=== PATIENT | female | born 1945 | race Caucasian/White ===

== ENCOUNTER → 2022-06-02 13:35 | Outpatient (CLI) | payer MEDICARE, SELFPAY ==
[2022-06-02 14:29] LABS: Appearance Urine UA CLEAR; Bilirubin Urine UA NEGATIVE (NEGATIVE); Color Urine UA YELLOW; Glucose Urine UA TRACE g/dL (Negative); Ketones Urine UA TRACE (NEGATIVE); Leukocyte Esterase Urine UA TRACE (NEGATIVE); Nitrite Urine UA NEGATIVE (Negative); Occult Blood Urine UA NEGATIVE (Negative); Protein Urine UA TRACE (Negative); Urobilinogen Urine UA 0.2 E.U./dL (0.2)
[2022-06-02 14:35] LABS: Bacteria Urine None Seen; Culture Indicated Urine Specimen Cultured; RBC Urine None Seen (0-5/HPF); Squamous Epithelial Cell Urine 0-1 /HPF (0-5/HPF); WBC Urine 1-5/HPF (0-5/HPF)
[2022-06-02 15:04] LABS: Add Manual Diff / Slide Review NO; Basophils Absolute Auto 100 /uL (0-100); Eosinophils Absolute Auto 500 /uL (0-450); Eosinophils Percent Auto 5.4 % (2-4); Hemoglobin 12.6 g/dL (12.0-16.0); Lymphocytes Absolute Auto 3100 /uL (1100-4500); Lymphocytes Percent Auto 31.1 % (25-40); Mean Corpuscular Hemoglobin 31.7 PG (26-34); Mean Corpuscular Volume 88.1 fL (80-100); Monocytes Absolute Auto 600 /uL (0-900); Neutrophils Absolute Auto 5700 /uL (1500-7000); Neutrophils Percent Auto 56.5 % (50-75); Platelet Count 325 X10^3/uL (150-400); Red Blood Cell Count 3.97 X10^6/uL (4.0-5.2); Red Cell Distribution Width 13.4 % (11.6-14.8); White Blood Cell Count 10.1 X10^3/uL (4.5-11.0)
[2022-06-02 15:14] LABS: Hemoglobin A1C% w Est Avg Glu 5.3 % (4.0-6.0)
[2022-06-02 15:38] LABS: BUN Creatinine Ratio 17.7 (6-22); Blood Urea Nitrogen 17 mg/dL (7-17); Calcium 8.8 mg/dL (8.4-10.2); Carbon Dioxide 21 mmol/L (22-32); Chloride 106 mmol/L (98-107); Estimated Glomerular Filt Rate > 60 mL/min (>60); Glucose 127 mg/dL (80-110); HEMOLYSIS < 15 (0-50); Potassium 4.4 mmol/L (3.4-5.1); Sodium 138 mmol/L (137-145)
== END ==
PROVIDERS: Referring Provider Orthopaedic Surgery; Visit Provider Orthopaedic Surgery
DX: Z01.818 Encounter for other preprocedural examination (principal); R73.9 Hyperglycemia, unspecified; Z01.812 Encounter for preprocedural laboratory examination; N39.0 Urinary tract infection, site not specified
CPT/HCPCS: 80048; 81001; 83036; 85025; 87086; 93005; 93010

== ENCOUNTER → 2022-08-11 08:53 | Outpatient (CLI) | payer MEDICARE, SELFPAY ==
[2022-08-11 09:53] LABS: COVID19 -Nasal RAPID Negative (Negative)
== END ==
PROVIDERS: Referring Provider Orthopaedic Surgery; Visit Provider Orthopaedic Surgery
DX: Z20.822 Contact with and (suspected) exposure to COVID-19 (principal)
CPT/HCPCS: 87635; C9803

== ENCOUNTER 2022-08-12 06:17 | Day surgery (SDC) | payer MEDICARE, SELFPAY ==
[2022-08-05 08:22] VITALS: BMI 37.8
[2022-08-12] VITALS (12 sets, daily range): BP systolic 116–177; BP diastolic 46–82; PULSE 58–76; RESP 12–18; TEMP 36.3–36.9; O2SAT 90–99; BMI 39.2; BMI 37.8
--- NOTE | 2022-08-12 06:00 | DI.RAD.S_ITS ---
PROCEDURE: XR PELVIS 1-2V INDICATIONS: INNER OP TECHNIQUE: Intra-operative view of the pelvis and hip acquired. COMPARISON: X-ray pelvis with left hip, 05/08/2022. FINDINGS: Bones: Intraoperative devices prior to placement of arthroplasty prostheses are in expected positions. No fractures or suspicious bony lesions. Soft tissues: Overlying surgical retractors are present, along with other intraoperative changes. IMPRESSION: Intraoperative device in expected alignment and appearance. Dictated by: Corbin Caraballo M.D. on 08/12/2022 at 9:23 Approved by: Corbin Caraballo M.D. on 08/12/2022 at 9:23
[2022-08-12] MEDS: ACETAMINOPHEN 325 MG TABLET 975 MG PO (07:02)
[2022-08-12] MEDS: VANCOMYCIN 1,000 MG/200 ML PIGGYBACK 200 MG IV (07:05)
[2022-08-12] MEDS: CELECOXIB 200 MG CAPSULE PO (07:05)
[2022-08-12] MEDS: LACTATED RINGERS 1,000 ML 84 ML IV (07:11)
--- NOTE | 2022-08-12 07:41 | P.OP_ITS ---
Operative Date/Time/Diagnoses Date of procedure: 08/12/22 Time of procedure: 07:50 Pre-op diagnosis: right hip OA Post-op diagnosis: same Procedure & Clinicians Procedure: Right total hip arthroplasty posterior approach Same procedure as scheduled: Yes Indications: The patient has had progressively worsening right hip pain with radiographic changes consistent with arthritis. Non-operative management has failed and the patient has requested total hip replacement. The risks, benefits and alternatives to surgery were discussed with the patient prior to proceeding. Risks discussed included, but were not limited to, failure to relieve pain, leg length discrepancy, dislocation, stiffness, infection, nerve damage, deep venous thrombosis, pulmonary embolism, stroke, coma, heart attack, permanent paralysis and , as well as the potential need for eventual revision of the prosthetic. Surgeon: Nadia Goldsmith Canal Superintendent: Stefani Laura Anesthesia Type: General and Spinal Operative Notes Findings: Severe right hip osteoarthritis, adequate stability and bone Closure Type: primary Specimen(s): none sent Prosthetic devices, grafts, tissues, transplants, or devices: G[employer]mith [employer] Nephew R3 50 cup, 32 +0 Oxinium head, size 7 standard offset anthology Estimated Blood Loss (mL): 250 Blood products transfused: none Procedure in detail: The patient was seen in the pre-operative area, where the patient identified the right hip as the operative site and this was marked with my initials. The patient received pre-operative antibiotics and was taken to the operating room and placed on the operative table in the left lateral decubitus position after satisfactory anesthesia. A multimedia journalist out was performed. The right leg was prepared from the ankle to the iliac crest with ChloroPrep in the usual fashion and draped through sterile drapes. The hip was approached through an approximately 20 cm incision centered over the greater trochanter and curving gently posteriorly as it went proximally. This was carried sharply to the fascia guillermo, which was divided and retracted with a self retaining retractor. The trochanteric bursa was excised with care being taken to avoid the sciatic nerve, which was identified and protected throughout the case. The short external rotators were incised and the capsulomuscular flap was raised and tagged for later repair. The hip was dislocated, and a femoral neck osteotomy performed approximately 15 mm above the lesser trochanter. Retractors were placed around the femur. The canal was opened with a box cutting osteotome, followed by a T handled reamer and a lateralizing reamer. The chili pepper broach was then used, followed by sequential broaching until there was good stability of the broach in the femur. Retractors were placed to expose the acetabulum. The labrum and central soft tissues were removed. Reaming was performed initially going up in 2 mm increments, then 1 mm increments until good bite was obtained with an odd sized reamer. The cup 1 mm larger than the last reamer was then inserted using the appropriate anteversion guides. A trial neutral liner was placed. The broach was placed in the canal. A trial head and neck were then placed and the hip relocated and checked for leg length and stability. An intraoperative film confirmed the component position and no evidence of fracture. The patient was stable in the position of sleep, of squatting, and could be put through a range of motion with 45 degrees internal rotation without dislocation. At 90 degrees flexion, internal rotation to 70? was possible before dislocation. This was felt to be satisfactory and the appropriate components were opened, and the trials were removed. The acetabular liner was impacted into position. The final stem was then impacted into the prepared femoral canal. A brief Betadine soak was performed while trialing with head options. The hip was meticulously irrigated with normal saline. Finally the femoral head was impacted onto the stem. The acetabulum was cleared of all material and the hip relocated one final time. The capsulomuscular flap was then repaired to the greater trochanter though an awl hole using the tag sutures. The short external rotators were repaired with a nonabsorbable suture. The fascia guillermo was closed with Vicryl. The subcutaneous layer was closed with barbed sutures and surgical glue. A paul dressing was applied and the patient was taken to recovery having tolerated the procedure well. Complications: none Post-operative Condition: stable Disposition: Acute Care Plan for aftercare: The patient will be maintained on a standard total hip replacement protocol with weight bearing as tolerated and posterior hip precautions. The patient will receive Aspirin and sequential compression devices for DVT prophylaxis. The patient will be discharged home when safe for the home environment.
--- NOTE | 2022-08-12 07:41 | PM.PREOP ---
Pre-operative Note COVID-19 COVID-19 status: Negative Interval Note History & Physical reviewed/Exam performed by Physician: Yes Changes to H&P: No
[2022-08-12] MEDS: CEFAZOLIN 2 GM/100 ML PREMIX 100 ML IV (08:10)
[2022-08-12] MEDS: TRANEXAMIC ACID 1,000 MG VIAL 2000 MG INJ (08:20)
--- NOTE | 2022-08-12 08:35 | SUR.OPER ---
Lateral on padded OR bed. Gel axillary roll. Arms secured on padded armboard with pillow supporting top arm. Padded hip positioner braces x4 - anterior and posterior chest and pelvis. Additional gel pad used anterior pelvis. Gel pad under bottom leg from knee to foot and secured with tape over sheet.
[2022-08-12] MEDS: BUPIVACAINE LIPOSOME 266 MG/20 ML VIAL INJ (08:40)
[2022-08-12] MEDS: BUPIVACAINE 0.5% W/ EPI (PF) 30 ML VIAL INJ (08:45)
--- NOTE | 2022-08-12 10:00 | DI.RAD.S_ITS ---
PROCEDURE: XR HIP W PEL IF DONE LT 2V INDICATIONS: POST OP LEFT HIP TECHNIQUE: 2 view(s) of the hip acquired. COMPARISON: [facility] IrvingYuval Salazar, CR, XR PELVIS WITH LATERAL HIP LEFT, 05/08/2022, 9:32. FINDINGS: Bones: Patient is status post total left hip arthroplasty, with hardware components in expected positions. The hip joint appears congruent. The visualized bony structures appear intact. Soft tissues: Overlying postoperative changes are noted. No suspicious soft tissue densities. IMPRESSION: Expected immediate postoperative appearance, status post total left hip arthroplasty. Dictated by: Alexis Kim M.D. on 08/12/2022 at 16:51 Approved by: Alexis Kim M.D. on 08/12/2022 at 16:51
[2022-08-12] MEDS: OXYCODONE/ACETAMINOPHEN 5/325 TABLET 1 TAB PO (10:56)
[2022-08-12] MEDS: LACTATED RINGERS 1,000 ML 125 ML IV (11:43)
--- NOTE | 2022-08-12 14:36 | PT.IIE ---
Current Diagnoses Unilateral primary osteoarthritis, left hip (08/12/22) Surgery Performed Operation Date: 08/12/22 07:45 Actual Procedures p Total Hip Arthroplasty posterior(Left) - Nadia Goldsmith MD Surgical History (Last Updated 08/05/22 @ 09:18 by Maddie Olivera, RN) History of ankle surgery History of lumpectomy of right breast (2014) Hx of tonsillectomy Medical History (Last Updated 08/05/22 @ 09:18 by Maddie Olivera RN) Acid reflux Breast cancer, right (2014) Herpes HLD (hyperlipidemia) VALERIE on CPAP Osteoarthritis Physical Therapy Inpatient Evaluation/Re-Eval M1 PT/OT-IP Prior Functional Status Start: 08/12/22 15:54 Freq: NEEDED Status: Active Protocol: Document 08/12/22 14:36 AB (Rec: 08/12/22 16:04 AB [id number]) Medical Review Prior Functional Status Medical History Reviewed Yes Communication able to make needs known Mobility and Gait pt stated that she is independent with all mobilities and ambulation without AD Social History Household Members significant other Living Arrangements House Number of Floors (Floors) One Floor Number of Stairs To Enter/Railing? 3 steps R rail ascending to enter Home Environment Standard Height Toilet,Walk in Shower Home Equipment Front Wheel Walker,Straight Cane,Raised Toilet Seat Without Armrests,Hand Held Shower,Grab Bars Near Toilet, Grab Bars In Shower M2 PT-IP Current Condition Start: 08/12/22 15:54 Freq: NEEDED Status: Active Protocol: Document 08/12/22 14:36 AB (Rec: 08/12/22 16:04 AB [email or web address]) Physical Therapy Current Condition Current Condition Evaluation Date 08/12/22 Treatment Diagnosis s/p L TATIANA posterior; difficulty in walking Onset Date 08/12/22 M3 PT-IP Subjective Start: 08/12/22 15:54 Freq: NEEDED Status: Active Protocol: Document 08/12/22 14:36 AB (Rec: 08/12/22 16:04 AB [email or web address]) Subjective Physical Therapy Visit Type Type Initial Evaluation Visit Start Time 14:36 Visit Stop Time 15:25 Total Visit Minutes 49 Number of GROUNDS/MAINTENANCE SPECIALIST Visits 0 Physical Therapy Visit Comments Patient Comments agreeable to do PT Therapy Pain Assessment Pain When Pain Assessed At Rest Pain Present Pain Present Pain Reported Location Left Hip Intensity 4 Scale Used Numeric (0 - 10) Pain Management Techniques Apply Cold,Distraction, Modification of Treatment,Re- positioning,Timing of Activity with Medications M4 PT-IP Mobility and Gait Start: 08/12/22 15:54 Freq: NEEDED Status: Active Protocol: Document 08/12/22 14:36 AB (Rec: 08/12/22 16:04 AB [email or web address]) PT-Bed Mobility Assessment Supine to Sit Supine to Sit Standby Assistance PT-Transfer Assessment Sit to and From Stand Sit to and from Stand Moderate Assistance,1 Person Assistance,Use of Upper Extremities Equipment Transfer Assistive Device Gait Belt,Front Wheeled Walker Orthotic/Prosthetic Devices or Brace: No Transfers Transfer Destination Chair Transfer Technique ambulated Transfer Ability Level of Assist Minimal Assistance,Moderate Assistance,1 Person Assistance ,Use of Upper Extremities Comments Mobility Comments educated pt regarding posterior hip precatuions. pt able to recall 2/3. completed supine to sit SBA and cues for safety. able to sit on EOB SBA. completed sit to stand mod A and cues for hip precautions. ambulated in room using FWW min to mod A and cues for L quads contraction. pt agreed to sit on chair. positioned on the chair. call light and table placed within reach. caregiver training set up for tomorrow at 9 am. pt to call her partner. Gait Assessment Gait Gait Assistance Required: Minimum Assistance,Moderate Assistance Distance (Feet) 35 Able to Maintain Weight Bearing Status Yes During Gait Assistive Devices Assistive Device Gait Belt,Front Wheeled Walker Orthotic/Prosthetic Devices or Brace: No Gait Deviations General Gait Pattern Antalgic,Decreased Stride Length,Decreased Feet Clearance,Step-to Gait Factors Limiting Gait Function Factors Limiting Gait Function Decreased Activity Tolerance, Decreased Strength,Difficulty Following Directions,Limited Range of Motion,Pain,Poor Balance,Poor Safety Awareness PT-Balance Assessment Sitting Balance and Reactions Static Sitting Balance Ability Good Dynamic Sitting Balance Ability Good Standing Balance and Reactions Static Standing Balance Ability Fair Dynamic Standing Balance Ability Fair Device Used FWW M5 PT-IP Objective Assessments Start: 08/12/22 15:54 Freq: NEEDED Status: Active Protocol: Document 08/12/22 14:36 AB (Rec: 08/12/22 16:04 AB [email or web address]) Orientation Orientation/Cognition Level of Alertness Alert Orientation Name,Place,Situation Language Function Ability No Deficits Noted Safety Awareness Decreased Safety Awareness Memory Description Short Term Impaired Gross Range of Motion Lower Extremity ROM Assessment Within Functional Limits Strength Lower Extremity Strength Assessment Left Impaired Hip 3+/5 Knee 3+/5 Sensation Assessment Sensation Gross Sensation WNL Muscle Tone Muscle Tone WNL Yes M6 PT-IP Treatment Start: 08/12/22 15:54 Freq: NEEDED Status: Active Protocol: Document 08/12/22 14:36 AB (Rec: 08/12/22 16:04 AB [email or web address]) Physical Therapy Treatment Education Education Provided Precautions,Weight Bearing Status,Post-Op Packet,Safety M7 PT-IP Assessment and Plan Start: 08/12/22 15:54 Freq: NEEDED Status: Active Protocol: Document 08/12/22 14:36 AB (Rec: 08/12/22 16:04 AB [email or web address]) PT Summary Assessment and Plan Potential Rehabilitation Potential Fair Status of Condition at Evaluation Evolving Summary Impairments Pain,ROM,Strength,Balance, Coordination,Sensation,Tone, Cognition,Bed Mobility, Transfers,Gait,Activity Tolerance Assessment Summary pt s/p L TATIANA posterior approach and just had surgery this morning. pt will likely progress during hospital stay. pt requiring min to mod A with mobility using FWW and plans to go home with her partner Mary to assist her. caregiver training set up for tomorrow at 9 am. will continue to assess progress. Goals Bed Mobility Goal Independent Transfer Goal Independent,Front Wheeled Walker Gait Goal Independent,Front Wheel Walker Gait Distance 150 Other Goals up/down 3 steps R rail +SPC SBA Days to Meet Goals 5 Frequency of Treatment Frequency Of Treatment Twice a Day Treatment Plan Physical Therapy Treatment Plan Bed Mobility Training,Transfer Training,Gait Training, Therapeutic Exercise,Balance Retraining,Post Op Education, Discharge Planning,Hot or Cold Pack,Neuromuscular Re-ed, Coordination Retraining,Manual Therapy Precautions Posterior Hip Precautions No Hip Flexion > 90 degrees,No Hip Internal Rotation,No Hip Adduction Weight Bearing Status Weight Bearing Status Weight Bear as Tolerated Allowed Weight Bearing Amount (enter % LLE WBAT or #) (%) Recommendations To Nursing Amount of Assist Needed 1 Person Assist Discharge Recommendations PT Discharge Recommendations Home with 16/02 Assist Available,Outpatient PT Transportation Needs at Discharge Private Vehicle,Wheelchair/ Cabulance
[2022-08-12] MEDS: OXYCODONE IR 5 MG TABLET PO ×2 (14:45→20:07)
[2022-08-12] MEDS: CEFAZOLIN 3 GM IN 0.9 % NACL 3 GM/100 ML PLAST..BAG IV (16:00)
[2022-08-12] MEDS: ACETAMINOPHEN 325 MG TABLET 650 MG PO (17:43)
[2022-08-12] MEDS: IBUPROFEN 400 MG TABLET PO (17:43)
[2022-08-12] MEDS: ASPIRIN EC 81 MG TABLET PO (20:06)
[2022-08-12] MEDS: DOCUSATE 100 MG CAPSULE PO (20:07)
[2022-08-12] MEDS: ATORVASTATIN 20 MG TABLET 10 MG PO (20:07)
[2022-08-12] MEDS: ACYCLOVIR 400 MG TABLET 800 MG PO (20:08)
[2022-08-12] MEDS: CITALOPRAM 10 MG TABLET 20 MG PO (20:09)
[2022-08-13] VITALS: BP 137/62; PULSE 72; RESP 18; TEMP 36.8; O2SAT 95
[2022-08-13] MEDS: CEFAZOLIN VIAL 3 GM in SODIUM CHLORIDE 0.9% 100 ML IV (00:34)
[2022-08-13] MEDS: ACETAMINOPHEN 325 MG TABLET 650 MG PO ×2 (00:34→06:06)
[2022-08-13] MEDS: IBUPROFEN 400 MG TABLET PO ×2 (00:34→06:07)
[2022-08-13] MEDS: OXYCODONE IR 10 MG TABLET PO (02:34)
[2022-08-13 04:00] VITALS: BP 124/65; PULSE 65; RESP 17; TEMP 36.3; O2SAT 94
[2022-08-13 04:57] LABS: Hematocrit 35.5 % (36-46); Hemoglobin 12.2 g/dL (12.0-16.0)
[2022-08-13] MEDS: DOCUSATE 100 MG CAPSULE PO (08:38)
[2022-08-13] MEDS: ACYCLOVIR 400 MG TABLET 800 MG PO (08:38)
[2022-08-13] MEDS: ASPIRIN EC 81 MG TABLET PO (08:38)
[2022-08-13] MEDS: OXYCODONE IR 5 MG TABLET PO (08:38)
--- NOTE | 2022-08-13 08:46 | PM.DS.1 ---
History of Present Illness History of Present Illness Date Patient Seen: 08/13/22 Time Patient Seen: 08:46 Chief complaint: Left hip pain s/p left TATIANA Narrative: Patient is complaining of mild left hip pain this morning. She denies any numbness or tingling. No nausea or vomiting. Overall she is feeling well and would like to be discharged home today. Discharge Providers Provider Discharge Date: 08/13/22 Primary care physician: Doctor Jelly MD Consults: 08/05/22 09:34 Consult to Anesthesiology Routine Comment: Consulting Provider: Anesthesiologist Reason for consultation: PAC courtesy re: abnormal pre-op ECG 08/12/22 06:00 Consult to Anesthesiology Routine Comment: Consulting Provider: Anesthesiologist Reason for consultation: Regional block for post operative pain control 08/12/22 11:33 Consult to Discharge Planning Routine Comment: Consult to Physical Therapy Evaluate & Treat Comment: Physician Instructions: post op TATIANA protocol Discharge provider: Stefani Laura PA-C Summary Hospital Course Discharge Diagnosis: Left hip osteoarthritis Hospital Course: Operative Date/Time/Diagnoses Date of procedure: 08/12/22 Time of procedure: 07:50 Procedure & Clinicians Procedure: Left total hip arthroplasty posterior approach Same procedure as scheduled: Yes Indications: The patient has had progressively worsening left hip pain with radiographic changes consistent with arthritis. Non-operative management has failed and the patient has requested total hip replacement. The risks, benefits and alternatives to surgery were discussed with the patient prior to proceeding. Risks discussed included, but were not limited to, failure to relieve pain, leg length discrepancy, dislocation, stiffness, infection, nerve damage, deep venous thrombosis, pulmonary embolism, stroke, coma, heart attack, permanent paralysis and , as well as the potential need for eventual revision of the prosthetic. Surgeon: Nadia Goldsmith Building Energy Consultant: Stefani Laura Anesthesia Type: General and Spinal Operative Notes Findings: Severe left hip osteoarthritis, adequate stability and bone Closure Type: primary Specimen(s): none sent Prosthetic devices, grafts, tissues, transplants, or devices: Goldsmith and Nephew R3 50 cup, 32 +0 Oxinium head, size 7 standard offset anthology Estimated Blood Loss (mL): 250 Blood products transfused: none Status at Discharge Cognitive/behavioral status at discharge: at baseline, oriented Functional status at discharge: uses cane/walker Overall status at discharge: patient is progressing back to baseline Exam Vital Signs (past 8 hours): - 08/13/22 04:00 Temperature 97.3 F L Pulse Rate 65 Respiratory Rate 17 Blood Pressure 124/65 Pulse Oximetry 94 Oxygen Delivery Method Room Air Oxygen Flow Rate 0 Narrative Exam Narrative: Pleasant 76-year-old female, resting comfortably in her chair, no acute distress. Left hip grupo dressing demonstrates 1 pinpoint area of dried blood, otherwise clean, dry, intact. No surrounding erythema, induration, or john pus. Bilateral lower extremity: Motor functions are grossly intact, sensation is grossly intact to light touch, calves are soft and nontender to palpation. Objective Labs Result Diagrams: 08/13/22 04:22 Labs: Laboratory Results - last 24 hr 08/13/22 04:22 Hgb 12.2 Hct 35.5 L PFSH Medical History Acid reflux Breast cancer, right (2014) Herpes HLD (hyperlipidemia) VALERIE on CPAP Osteoarthritis Surgical History History of ankle surgery History of lumpectomy of right breast (2014) Hx of tonsillectomy Social History household members: significant other Smoking Status: Former smoker alcohol intake: current Discharge Assessment & Plan Assessment and Plan Assessment: -stable status post left total hip arthroplasty, posterior approach Plan of Treatment: -mobilize with physical therapy. Weightbearing as tolerated with front wheel walker. Maintain posterior hip precautions x6 weeks -continue with multimodal pain management. The patient has a prescription of oxycodone 5 mg at home already. -aspirin 81 mg b.i.d. x6 weeks for DVT prophylaxis -DC home today once cleared by PT Discharge Plan Discharge Plan Patient Disposition: Home Discharge orders & Medications Discharge Orders: Discharge (Order); Ordered 08/13/22 Ordered By: Stefani Laura Prescriptions: New acetaminophen 500 mg capsule 500 mg PO Q4H MDD Max 3000 mg per day PRN (Reason: fever or pain) Qty: 90 0RF aspirin 81 mg Tablet,Delayed Release (Dr/Ec) 81 mg PO BID 42 Days Qty: 84 0RF Rx Instructions: Prevent blood clots docusate sodium 100 mg Capsule 100 mg PO BID PRN (Reason: Constipation from narcotic pain meds) Qty: 20 0RF ibuprofen 400 mg Tablet 400 mg PO Q6HR MDD Max 2400 mg per day PRN (Reason: Pain/inflammation) Qty: 90 0RF oxycodone 5 mg Tablet 5 mg PO Q3HR PRN (Reason: Moderate to severe postoperative pain) Qty: 40 0RF Continued acyclovir 800 mg Tablet 800 mg PO BID citalopram 20 mg Tablet 20 mg PO BEDTIME simvastatin 20 mg Tablet 20 mg PO BEDTIME Follow up/Referrals: Miscellaneous,MD Shilpi [Primary Care Provider] - Nadia Goldsmith MD [Physician] - As previously scheduled (10-14 days for postoperative visit) Diet/Activity/Treatments Diet: Diet as Tolerated Other treatments: Medications: -Aspirin 81mg twice daily x6 weeks to prevent blood clots. -OTC Tylenol 500 mg 1 tablet every 4 hours as needed for pain/fever. Max 6 tablets per day. -Ibuprofen 400 mg 1 tablet every 4 hours as needed for pain/inflammation. Max 2,400 mg per day. -Oxycodone 5 mg take 1-2 tablets every 4 hours as needed for moderate-severe pain (narcotic pain medication). -As needed medications: -Ducolax and /or MiraLax as needed for constipation from narcotic pain medications. -Pepcid AC as needed for stomach upset (usually from aspirin or ibuprofen). Dressing/Wound care: -Keep Grupo dressing in place until postoperative follow-up office visit. The Grupo battery/pump should last for 7 days from surgery. Once the pump stops, please cut off hose at base of dressing and cover with a bandaid/part of a dressing from Grupo package. The monitor can be thrown away and recycle the batteries. Leave the remaining dressing in place. -Grupo info: The Grupo dressing provides suction known as negative pressure wound therapy, which draws out excess fluid from the wound and protects the incision. It also helps to prevent bacteria from entering the wound or incision. -Okay to shower. Keep wound out of direct water stream. No soaking or submerging until all the scabs fall off (approximately 6 weeks). -No lotions, ointments, or scar creams directly to the incision until the wound is healed (4-6 weeks), -Please call the office if dressing becomes wet, soiled, or saturated. Activities: -Maintain posterior hip precautions x6 weeks. -Weight-bearing as tolerated. Use front wheeled walker, and progress to cane when safe. -Continue with home exercises as directed by your physical therapist. -Elevate ?toes above the nose if you have significant swelling in your lower leg. (A wedge pillow is easiest.) -Ice your incision as needed for pain/inflammation/swelling. Protect your skin with a folded pillowcase. Follow-up: -Follow-up with your surgeon or PA in the office in 10-14 days after surgery. -Follow-up with your surgeon 6 weeks postoperatively. Call the office if you have chest pain, shortness of breath, significant swelling that will not resolve with elevating, fever over 101?, significantly worsening pain, or are concerned you might need to go to the Emergency Room. [facility]: [phone] Skin/Wound/Dressing Care Report to your healthcare provider any signs of infection, such as:: chills, fever, night sweats, unusual drainage and unusual redness Visit Report/Discharge Packet Instructions: DI for Hip Replacement Stand Alone Forms: Patient Portal/API, Stroke Signs & Symptoms, Surgery Discharge Discharge Data Primary Care Provider: Miscellaneous,Doctor Attending Provider: Nadia Goldsmith VTE Deep Vein Thrombosis/Pulmonary Embolism Present on Admission: No
[2022-08-13 08:48] VITALS: BP 138/55; PULSE 66; RESP 15; TEMP 36.4; O2SAT 96
--- NOTE | 2022-08-13 09:00 | PT.IPTN ---
Current Diagnoses Unilateral primary osteoarthritis, left hip (08/12/22) Surgery Performed Operation Date: 08/12/22 07:45 Actual Procedures p Total Hip Arthroplasty posterior(Left) - Nadia Goldsmith MD Physical Therapy Treatment Note M2 PT-IP Current Condition Start: 08/12/22 15:54 Freq: NEEDED Status: Discharge Protocol: Document 08/12/22 14:36 AB (Rec: 08/12/22 16:04 AB [id number]) Physical Therapy Current Condition Current Condition Evaluation Date 08/12/22 Treatment Diagnosis s/p L TATIANA posterior; difficulty in walking Onset Date 08/12/22 M3 PT-IP Subjective Start: 08/12/22 15:54 Freq: NEEDED Status: Discharge Protocol: Document 08/13/22 09:00 AB (Rec: 08/13/22 14:26 AB [id number]) Subjective Physical Therapy Visit Type Type Treatment Note Visit Start Time 09:00 Visit Stop Time 10:00 Total Visit Minutes 60 Number of FORM DRAFTER Visits 0 Physical Therapy Visit Comments Patient Comments agreeable to do PT M4 PT-IP Mobility and Gait Start: 08/12/22 15:54 Freq: NEEDED Status: Discharge Protocol: Document 08/13/22 09:00 AB (Rec: 08/13/22 14:26 AB [id number]) PT-Bed Mobility Assessment Supine to Sit Supine to Sit Standby Assistance Sit to Supine Sit to Supine Standby Assistance PT-Transfer Assessment Sit to and From Stand Sit to and from Stand Standby Assistance,Contact Guard Assistance,1 Person Assistance,Use of Upper Extremities Equipment Transfer Assistive Device Gait Belt,Front Wheeled Walker Orthotic/Prosthetic Devices or Brace: No Transfers Transfer Destination Bed,Chair Transfer Technique ambulated Transfer Ability Level of Assist Standby Assistance,Contact Guard Assistance,1 Person Assistance,Use of Upper Extremities Comments Mobility Comments pt sitting on chair. pt's partner in room for caregiver training. educated caregiver on pt's hip precautions. pt completed sit to stand from chair CGA and ambulated to the bed using FWW SBA to CGA. pt completed sit <>supine SBA with cues. educated caregiver on how to assist pt with bed mobility when needed. educated caregiver on how to use safety belt and how to assist pt. caregiver assisted pt with sit to stand from EOB and ambulation using FWW towards the chair and completed safely . pt ambulated out to the hallway using FWW ~125 ft with caregiver assisting. educated pt and caregiver on stair climbing techniques. PT assisted pt on first set. caregiver counter demonstrated and completed with pt. assisted pt back to her room. pt ambulated from w/c to chair using FWW SBA. positioned pt on the chair. call light and table placed within reach. Pt and caregiver without further concerns. Gait Assessment Gait Gait Assistance Required: Standby Assistance,Contact Guard Assist Distance (Feet) 125 Able to Maintain Weight Bearing Status Yes During Gait Assistive Devices Assistive Device Gait Belt,Front Wheeled Walker Orthotic/Prosthetic Devices or Brace: No Gait Deviations General Gait Pattern Antalgic,Decreased Stride Length,Decreased Feet Clearance Factors Limiting Gait Function Factors Limiting Gait Function Decreased Activity Tolerance, Limited Range of Motion,Pain, Poor Balance Stair Climbing Assessment Evaluation Level of Assist On Stairs Contact Guard Assistance Devices Stair Climbing Assistive Devices Straight Cane,Right Railing Technique/Endurance Stair Climbing Direction Ascend and Descend Stair Climbing Technique Step to Step Number of Steps Climbed 3 Stair Climbing Set # Repetitions (reps) 2 M5 PT-IP Objective Assessments Start: 08/12/22 15:54 Freq: NEEDED Status: Discharge Protocol: Document 08/12/22 14:36 AB (Rec: 08/12/22 16:04 AB [email or web address]) Orientation Orientation/Cognition Level of Alertness Alert Orientation Name,Place,Situation Language Function Ability No Deficits Noted Safety Awareness Decreased Safety Awareness Memory Description Short Term Impaired Gross Range of Motion Lower Extremity ROM Assessment Within Functional Limits Strength Lower Extremity Strength Assessment Left Impaired Hip 3+/5 Knee 3+/5 Sensation Assessment Sensation Gross Sensation WNL Muscle Tone Muscle Tone WNL Yes M6 PT-IP Treatment Start: 08/12/22 15:54 Freq: NEEDED Status: Discharge Protocol: Document 08/13/22 09:00 AB (Rec: 08/13/22 14:26 AB [email or web address]) Physical Therapy Treatment Education Education Provided Precautions,Weight Bearing Status,Safety M7 PT-IP Assessment and Plan Start: 08/12/22 15:54 Freq: NEEDED Status: Discharge Protocol: Document 08/13/22 09:00 AB (Rec: 08/13/22 14:26 AB [email or web address]) PT Summary Assessment and Plan Potential Rehabilitation Potential Good Summary Impairments Pain,ROM,Strength,Balance, Coordination,Sensation,Tone, Cognition,Bed Mobility, Transfers,Gait,Activity Tolerance Progress Towards Goals Progressing Toward Goals Assessment Summary caregiver training completed and caregiver was able to assist pt safely. pt plans to go home today with assistance and has outpt PT scheduled. pt may go home when medically stable. Goals Bed Mobility Goal Independent Transfer Goal Independent,Front Wheeled Walker Gait Goal Independent,Front Wheel Walker Gait Distance 150 Other Goals up/down 3 steps R rail +SPC SBA Days to Meet Goals 5 Frequency of Treatment Frequency Of Treatment Twice a Day Treatment Plan Physical Therapy Treatment Plan Bed Mobility Training,Transfer Training,Gait Training, Therapeutic Exercise,Balance Retraining,Post Op Education, Discharge Planning,Hot or Cold Pack,Neuromuscular Re-ed, Coordination Retraining,Manual Therapy Precautions Posterior Hip Precautions No Hip Flexion > 90 degrees,No Hip Internal Rotation,No Hip Adduction Weight Bearing Status Weight Bearing Status Weight Bear as Tolerated Allowed Weight Bearing Amount (enter % LLE WBAT or #) (%) Recommendations To Nursing Amount of Assist Needed 1 Person Assist Discharge Recommendations PT Discharge Recommendations Home with Assistance, Outpatient PT Transportation Needs at Discharge Private Vehicle,Wheelchair/ Cabulance
--- NOTE | 2022-08-13 11:11 | CM.DANOTE ---
DCP: Case received, EMR reviewed and met with patient. Introduced self and role. Was able to obtain information regarding patient's baseline activity status prior to her surgery, as well as he current living situation. DCP assessment completed with information currently available. Patient is a 76 year old patient who admitted yesterday morning to the care of the orthopedic team. PCP: Dr. Segovia. Payer: confirmed: Medicare/[employer]ARP. Patient came to the hospital via private vehicle for a surgical procedure. Patient had right total hip arthroplasty posterior approach. Patient has history of right hip osteoarthritis. Met with patient in her room. She was sitting up in her chair, alert and oriented, pleasant. Confirmed that she resides in [place] with partner, Mary Jha. She is currently employed at [employer]. At her baseline, she is independent. Confirmed that her partner will be able to assist her when she goes home. P: Patient is discharging home today after she works with [employer]. Rohini Damon RN/Clinical Informatics Manager Discharge Planning/Care Management Advanced directive, confirm from FAMILY Start: 08/12/22 11:36 Freq: Q24H Status: Discharge Protocol: Document 08/12/22 11:36 (Rec: 08/12/22 12:08 [id number]) Advance Directive, confirm on record Time 12:08 Person contacted patient Copy received No CM Discharge Assessment Start: 08/13/22 11:09 Freq: Status: Active Protocol: Document 08/13/22 11:10 (Rec: 08/13/22 11:11 [id number]) Discharge Planning Assessment Assigned Dairy Equipment Repairer Rohini Damon RN/Clinical Informatics Manager Advance Directives? Yes Advance Directives on File No History Provided By Patient,Medical Record Prior Living Arrangements House Household Members significant other Type of transporation used prior to Drives own vehicle admit Independent with ADL's Yes Is patient alert and oriented? Yes Caregiver for Another No Patient/Family Preference OP PT Therapy Barriers to Discharge No Discharge Plan Home Transportation Arrangement Partner Referrals Initiated None needed Whiteboard Updated in Patient Room with Yes name and ext. # of Dairy Equipment Repairer Review Status In Process Next Review Type Continued Stay Review Pre-Anesthesia Assessment Start: 08/05/22 08:22 Freq: Status: Discharge Protocol: Document 08/05/22 08:22 CAB (Rec: 08/05/22 09:27 CAB [id number]) Pre-Anesthesia Assessment Patient Information Reviewed Via Phone Assessment Assessment Completed With Patient Diagnostic Results BMP/CMP,CBC,EKG,Urinalysis Comment Labs/ECG @ 06/02/22, COVID screen @ 08/09/22 Primary Care Provider Jude Tai Seen Specialist in Last 12 Months Yes Specialist Seen Orthopedist Primary Language Colombian Otm Consultant Required No Height 5 ft 8 in Weight 249 lb Body Mass Index (BMI) 37.8 Hearing Ability Normal Visual Assist Glasses Dentition Type Teeth, Natural Present Barriers to Learning None Hx Anesthesia Reactions No Hx Family Anesthesia Reaction No Hx Malignant Hyperthermia No Hx Blood Transfusions No Anesthesia Review Requested Yes: PAC courtesy re: Abnormal pre-op ECG alcohol intake current alcohol intake frequency holidays/special occasions only Smoking Status Former smoker how long ago did patient quit smoking Quit in her 30's Substance Use Type does not use Pain Present Pain Reported Musculoskeletal Symptoms Abnormal Gait,Difficulty Walking,Joint Pain History of Falling (Recent or History of No ) Patient is completely paralyzed or No completely immobile Mental Status Oriented to own ability Is patient on oxygen? No Does patient have MURILLO/SOB No Hx Sleep Apnea Yes CPAP/BIPAP use prescribed and used routinely Will Bring CPAP/BIPAP DOS Yes Currently Taking a Beta Vlad No Can You Climb a Flight of Stairs Without Yes SOB Hx Chest Pain No Hx SOB No Hx Syncope or Dizziness No Anti-Coagulant Therapy No Has a Fisheries Technician No Cardiac Testing No Hx Pacemaker/ICD No Pacemaker Rep Required? No Cardiac Clearance Received Not Applicable Diet Type At Home Regular Dysphagia No Gastrointestinal Symptoms Reflux Chronic UTI No Urinary Catheter Present No Hx Urinary Self Catheterization No Diabetes No HgbA1C 5.3 Date 06/02/22 Patient No Lactating No Hx Drug Resistant Organism No Presence of External or Internal Medical Yes: Right ankle, CPAP Devices Have you had any close contact with No someone diagnosed with COVID-19? Received a COVID vaccine? Yes Received all doses? Yes Marital Status Single Lives With significant other Current Living Arrangements House Number of Floors (Floors) One Floor Support System Support Group Does the Patient Have Assistance After Yes Surgery Patient Discharge Plan Description Return Home Comment Pt not advised on length of stay per surgeon Feels Safe in Current Environment Yes Been Physically Hurt or Threatened By a No Person in Current Environment Do you have thoughts of harming yourself None or others? Are you currently considering suicide? No Do you have a plan to hurt yourself or No Plan others? Do You Have Any Spiritual Beliefs That No May Affect Your HC Choices? Do You Have Any Cultural Practices That No May Affect Your HC Choices? Who Can We Speak to About Patient's Care Family, friends Identifying Code for Release of Patient Declines to issue Information Health Care Proxy/Next of Kin Mary Abhijeet (S.O.) Health Care Proxy Emergency Contact Name Mary Abhijeet (S.O.) Emergency Contact Advance Directives? Yes Advance Directives on File No Requested Patient Bring Advanced Yes Directives DOS Power of Audiometric Technician No PAC Instructions Bring CPAP/BIPAP,Do not shave/ clip surgical site,Durable medical equipment,Medications to take/avoid,Nasal antibiotic ,No ETOH/petroleum product on skin DOS,NPO,Post-op transportation,Pre-surgical wash,Sensory aids,Sturdy shoes /comfortable clothes,Do not bring valuables and remove jewelry
== END 2022-08-13 10:46 | disposition home or self-care (01) ==
LOC: OR 06:19 → AC 06:19
PROVIDERS: Referring Provider Orthopaedic Surgery; Visit Provider Orthopaedic Surgery
PROC: 0SRB0JZ Replacement of Left Hip Joint with Synthetic Substitute, Open Approach (ICD-10-PCS; CPT 27130; principal; 2022-08-12 07:45)
DX: M16.12 Unilateral primary osteoarthritis, left hip (principal); G47.33 Obstructive sleep apnea (adult) (pediatric); K21.9 Gastro-esophageal reflux disease without esophagitis
CPT/HCPCS: 27130; 36415; 72170; 73502; 85014; 85018; 97162; 97530; C1776; C9290; J0690; J1100; J2250; J2405; J2704; J3010